=== PATIENT | female | born 1995 | race Caucasian/White ===

== ENCOUNTER 2018-12-06 14:59 | Outpatient (CLI) | payer MEDICAID ==
[2018-12-06] MEDS: BETAMET NA PHOS/AC(6 MG/ML) 2 ML INJ SYG IM (16:36)
== END 2018-12-06 16:56 | disposition home or self-care (01) ==
LOC: OBT 14:59 → L-D 14:59 → OBT 16:56
DX: O26.873 Cervical shortening, third trimester (principal); Z3A.33 33 weeks gestation of pregnancy
CPT/HCPCS: 76818

== ENCOUNTER 2018-12-07 16:19 | Outpatient (CLI) | payer MEDICAID ==
[2018-12-07] MEDS: BETAMET NA PHOS/AC(6 MG/ML) 2 ML INJ SYG IM (17:10)
[2018-12-07 18:24] LABS: ADD UMIC YES; UR ASCORBIC ACID NEGATIVE (NEGATIVE); UR BILIRUBIN (Dip) NEGATIVE (NEGATIVE); UR BLOOD (Dip) NEGATIVE (NEGATIVE); UR CLARITY SLIGHTLY CLOUDY (CLEAR); UR COLOR YELLOW (YELLOW); UR GLUCOSE (Dip) NEGATIVE (NEGATIVE); UR KETONES (Dip) 1+ mg/dL (NEGATIVE); UR LEUKOCYTE ESTERASE (Dip) 3+ Leu/ul (NEGATIVE); UR NITRITE (Dip) NEGATIVE (NEGATIVE); UR RBC 1 /HPF (0-5); UR SPECIFIC GRAVITY (Dip) 1.015 (1.003-1.030); UR SQUAMOUS EPITHELIAL CELL FEW /HPF (FEW); UR TOTAL PROTEIN (Dip) 1+ mg/dl (NEGATIVE); UR UROBILINOGEN (Dip) 1+ mg/dL (NEGATIVE); UR WBC 51 /HPF (0-5)
== END 2018-12-07 18:55 | disposition home or self-care (01) ==
LOC: OBT 16:19 → L-D 16:20 → OBT 18:55
DX: O26.873 Cervical shortening, third trimester (principal); Z3A.33 33 weeks gestation of pregnancy
CPT/HCPCS: 76817; 81001

== ENCOUNTER 2019-01-25 09:10 | Inpatient (IN) | payer MEDICAID ==
[2019-01-25] MEDS ORDERED: BUTORPHANOL 2 MG INJ IV (11:30)
[2019-01-25] MEDS ORDERED: OXYTOCIN 30 UNITS/LR 500 ML IV ×2 (11:30)
[2019-01-25] MEDS ORDERED: IBUPROFEN 600 MG TAB PO (11:30)
[2019-01-25] MEDS ORDERED: MISOPROSTOL 200 MCG TAB PR (11:30)
[2019-01-25] MEDS ORDERED: LIDOCAINE 1% (MPF) 30 ML INJ INJ (11:30)
[2019-01-25] MEDS ORDERED: CARBOPROST 250 MCG INJ IM (11:30)
[2019-01-25] MEDS ORDERED: METHYLERGONOVINE 0.2 MG INJ IM (11:30)
[2019-01-25] MEDS: LACTATED RINGER'S 1,000 ML IV ×2 (12:16→18:32)
[2019-01-25 12:23] LABS: ADD MAN DIFF? NO
[2019-01-25 12:25] LABS: BASOPHILS % 0.3 % (0.0-2.0); EOSINOPHILS # 0.1 10^3/ul (0.0-0.5); EOSINOPHILS % 0.4 % (0.0-7.0); HEMATOCRIT 36.3 % (37.0-47.0); HEMOGLOBIN 11.7 g/dl (12.0-16.0); LYMPHOCYTES # 1.2 10^3/ul (0.8-2.9); LYMPHOCYTES % 8.6 % (15.0-51.0); MEAN CORPUSCULAR HEMOGLOBIN 26.3 pg (29.0-33.0); MEAN CORPUSCULAR HGB CONC 32.2 g/dl (32.0-37.0); MEAN CORPUSCULAR VOLUME 81.6 fl (82.0-101.0); MONOCYTE # 0.8 10^3/ul (0.3-0.9); MONOCYTES % 5.7 % (0.0-11.0); NEUTROPHIL # 11.8 10^3/ul (1.6-7.5); NEUTROPHILS % 84.4 % (39.0-77.0); PLATELET COUNT 158 10^3/UL (140-415); RED BLOOD COUNT 4.45 10^6/ul (4.20-5.40); RED CELL DISTRIBUTION WIDTH 14.6 % (11.5-14.5)
[2019-01-25 12:44] LABS: INR 0.98; PROTIME 13.1 Sec (11.9-14.9)
[2019-01-25 12:45] LABS: PARTIAL THROMBOPLASTIN TIME 26.6 Sec (23.0-35.0)
[2019-01-25 13:13] LABS: HEPATITIS B SURFACE ANTIGEN NEGATIVE (NEGATIVE)
[2019-01-25] MEDS: OXYTOCIN 30 UNITS/LR 500 ML IV (17:08)
[2019-01-25] MEDS: AMPICILLIN 1 GM/NS (PMX) 50 ML IV ×2 (19:30→23:30)
[2019-01-25 20:39] LABS: RAPID PLASMA REAGIN NONREACTIVE (NR)
[2019-01-26] MEDS: AMPICILLIN 1 GM/NS (PMX) 50 ML IV ×5 (03:30→19:23)
[2019-01-26] MEDS: LACTATED RINGER'S 1,000 ML IV ×4 (04:35→19:24)
[2019-01-26] MEDS ORDERED: METOPROLOL 5 MG INJ (07:00)
[2019-01-26] MEDS ORDERED: ROPIVACAINE 0.2% 20 ML VIAL (07:00)
[2019-01-26] MEDS ORDERED: FENTAnyl 2MCG/ML-ROPIV 0.2% 100 ML (07:49)
[2019-01-26] MEDS ORDERED: HYDROmorphONE 0.5 MG/0.5 ML SYG IV ×4 (08:00→21:30)
[2019-01-26] MEDS ORDERED: ONDANSETRON 4 MG INJ IV ×3 (08:00→21:30)
[2019-01-26] MEDS ORDERED: ZOLPIDEM 5 MG TAB PO ×3 (08:00→21:30)
[2019-01-26] MEDS ORDERED: NALOXONE (0.4 MG/ML) INJ IV ×2 (08:00→21:30)
[2019-01-26] MEDS ORDERED: DIPHENHYDRAMINE 50 MG INJ IV ×3 (08:00→21:30)
[2019-01-26] MEDS: FENTAnyl 2MCG/ML-ROPIV 0.2% 100 ML BAG EPI (09:57)
[2019-01-26] MEDS ORDERED: AMPICILLIN 2 GM/NS (PMX) 100 ML (12:42)
[2019-01-26] MEDS: AMPICILLIN 2 GM/NS (PMX) 100 ML IV ×2 (12:46→13:14)
[2019-01-26] MEDS: DEXTROSE 5%-LR 1,000 ML IV (13:15)
[2019-01-26] MEDS ORDERED: FAMOTIDINE 20 MG INJ (14:59)
[2019-01-26] MEDS ORDERED: METOCLOPRAMIDE 10 MG INJ (14:59)
[2019-01-26] MEDS ORDERED: OXYTOCIN 30 UNITS/LR 500 ML IV ×2 (15:00→19:30)
[2019-01-26] MEDS ORDERED: CEFAZOLIN 2 GM/50 ML (PMX) 50 ML IVPB (15:00)
[2019-01-26] MEDS: METOCLOPRAMIDE 10 MG INJ IV (15:10)
[2019-01-26] MEDS: FAMOTIDINE 20 MG INJ IV (15:10)
[2019-01-26] MEDS: ONDANSETRON 4 MG INJ IV (15:10)
[2019-01-26] MEDS ORDERED: OXYTOCIN 10 UNIT INJ (15:13)
[2019-01-26] MEDS ORDERED: morphine SULFATE/PF (10 MG/10 ML) INJ (15:16)
[2019-01-26] MEDS ORDERED: LIDOCAINE 1.5%/EPI MPF (SDV) 30 ML VIAL (15:19)
[2019-01-26] MEDS ORDERED: MIDAZOLAM 1 MG/ML 2 ML INJ (15:44)
[2019-01-26] MEDS ORDERED: FENTAnyl 50 MCG/ML VIAL (15:45)
[2019-01-26] MEDS: OXYTOCIN 30 UNITS/LR 500 ML IV ×2 (16:36→18:37)
[2019-01-26] MEDS: KETOROLAC 30 MG INJ IV (17:08)
[2019-01-26] MEDS: CLINDAMYCIN 600 MG/D5W (PMX) 50 ML IVPB (18:35)
[2019-01-26] MEDS: CEFAZOLIN 2 GM/50 ML (PMX) 50 ML IVPB (19:24)
[2019-01-26] MEDS ORDERED: MISOPROSTOL 200 MCG TAB PR (19:30)
[2019-01-26] MEDS ORDERED: OXYCODONE/ACETAMINOPHEN (5/325) TAB PO (19:30)
[2019-01-26] MEDS ORDERED: LANOLIN HPA 1 PKT TOP (19:30)
[2019-01-26] MEDS ORDERED: METHYLERGONOVINE 0.2 MG INJ IM (19:30)
[2019-01-26] MEDS ORDERED: CARBOPROST 250 MCG INJ IM (19:30)
[2019-01-26] MEDS: SENNA/DOCUSATE NA (8.6MG/50MG) TAB PO (21:00)
[2019-01-27] MEDS: LACTATED RINGER'S 1,000 ML IV ×3 (00:08→16:00)
[2019-01-27] MEDS: CLINDAMYCIN 600 MG/D5W (PMX) 50 ML IVPB ×3 (00:08→12:16)
[2019-01-27] MEDS: IBUPROFEN 600 MG TAB PO ×5 (06:00→23:36)
[2019-01-27 08:44] LABS: WHITE BLOOD COUNT 13.3 10^3/ul (4.8-10.8)
[2019-01-27 08:44] LABS: HEMATOCRIT 28.5 % (37.0-47.0); HEMOGLOBIN 9.3 g/dl (12.0-16.0); MEAN CORPUSCULAR HEMOGLOBIN 26.9 pg (29.0-33.0); MEAN CORPUSCULAR HGB CONC 32.6 g/dl (32.0-37.0); MEAN CORPUSCULAR VOLUME 82.4 fl (82.0-101.0); MEAN PLATELET VOLUME 11.8 fl (7.4-10.4); PLATELET COUNT 125 10^3/UL (140-415); RED BLOOD COUNT 3.46 10^6/ul (4.20-5.40); RED CELL DISTRIBUTION WIDTH 15.7 % (11.5-14.5)
[2019-01-27 08:54] LABS: POSITIVE DIFF @See below
[2019-01-27 08:55] LABS: ADD MAN DIFF? YES
[2019-01-27 09:32] LABS: ANISOCYTOSIS 2+ (0-0); BAND NEUTROPHILS #M 4.2 10^3/ul (0.0-0.6); BAND NEUTROPHILS % (M) 32 % (0-4); LYMPHOCYTES #M 0.7 10^3/ul (0.8-2.9); LYMPHOCYTES % (M) 6 % (15-51); MICROCYTOSIS 2+ (0-0); MONOCYTE #M 0.6 10^3/ul (0.3-0.9); MONOCYTES % (M) 5 % (0-11); PLATELET ESTIMATE DECREASED; REACTIVE LYMPHOCYTES #M 0.5 10^3/ul (0.0-0.0); REACTIVE LYMPHOCYTES% (M) 4 % (0-0); SEG NEUT #M 7.6 10^3/ul (1.6-7.5); SEGMENTED NEUTROPHILS (M) % 53 % (39-77); SMUDGE%M 3 % (0-0)
[2019-01-27] MEDS: SENNA/DOCUSATE NA (8.6MG/50MG) TAB PO ×2 (09:38→20:45)
[2019-01-27] MEDS: KETOROLAC 30 MG INJ IV (14:47)
[2019-01-27] MEDS: OXYCODONE/ACETAMINOPHEN (5/325) TAB PO (20:45)
[2019-01-28] MEDS: IBUPROFEN 600 MG TAB PO ×3 (06:14→18:55)
[2019-01-28] MEDS: LACTATED RINGER'S 1,000 ML IV ×2 (08:00)
[2019-01-28] MEDS: SENNA/DOCUSATE NA (8.6MG/50MG) TAB PO ×2 (09:05→21:00)
[2019-01-29] MEDS: IBUPROFEN 600 MG TAB PO ×3 (06:00→12:16)
[2019-01-29] MEDS: DIPHTH/TET/ACEL PERTUSS (ADULT) 0.5 ML VIAL IM* (08:50)
[2019-01-29] MEDS: SENNA/DOCUSATE NA (8.6MG/50MG) TAB PO (09:10)
== END 2019-01-29 13:05 | disposition home or self-care (01) | DRG 788 ==
LOC: OBT 09:10 → L-D 09:11 → PP1 01-26 22:01 → OBT 10:52 → L-D 10:52
PROVIDERS: Obstetrics & Gynecology
PROC: 10D00Z1 Extraction of Products of Conception, Low, Open Approach (ICD-10-PCS; principal; 2019-01-26)
DX: O76 Abnormality in fetal heart rate and rhythm complicating labor and delivery (principal); O69.1XX0 Labor and delivery complicated by cord around neck, with compression, not applicable or unspecified; O77.0 Labor and delivery complicated by meconium in amniotic fluid; Z3A.40 40 weeks gestation of pregnancy; Z37.0 Single live birth; O75.89 Other specified complications of labor and delivery
CPT/HCPCS: 76815; 76818; 85025; 85610; 85730; 86592; 86850; 86900; 86901; 87070; 87340; 88307; 99464